=== PATIENT | female | born 1970 | race Caucasian/White ===

== ENCOUNTER 2016-03-22 10:50 | Emergency (ER) | payer BC ==
[2016-03-22 11:14] VITALS: BP 148/95
--- NOTE | 2016-03-22 11:47 | UC ---
Skin Complaint HPI - HPI Summary HPI Summary: DEVELOPED AN ABSCESS LEFT BUTTOCK 5 DAYS AGO. LANCED IT AT HOME AND EXPRESSED PUS. 2 DAYS AGO NOTICED ANOTHER PAINFUL SWELLING LEFT LABIA. PT HAS BEEN SEXUALLY ACTIVE WITH A NEW PARTNER OVER THE PAST MONTH. UNPROTECTED. IS ALSO C/ O PAIN IN PERINEAL AREA. NO URINARY SX. NO FEVER. - History of Current Complaint Chief Complaint: UCSkin Time Seen by Provider: 03/22/16 11:31 Stated Complaint: PERSONAL Hx Obtained From: Patient Hx Last Menstrual Period: 03/10/16 Onset/Duration: Sudden Onset, Lasting Days, Still Present Timing: Constant Onset Severity: Moderate Current Severity: Moderate Pain Intensity: 10 - 10/10 PAIN WITH PALPATION Pain Scale Used: 0-10 Numeric Location: Discrete - LEFT LABIA MAJORA Character: Swelling, Pain, Redness, Raised Aggravating: Touch Alleviating: Nothing Associated Signs & Symptoms: Positive: Tenderness. Negative: Nausea, Vomiting, Fever, Chills - Allergy/Home Medications Allergies/Adverse Reactions: Allergies Allergy/AdvReac Type Severity Reaction Status Date / Time Amoxicillin Allergy See Comment Verified 06/25/13 21:19 Review of Systems Constitutional: Negative Skin: Other - ERYTHEMA, SWELLING Respiratory: Negative Cardiovascular: Negative, Palpitations Genitourinary: Other - VAGINAL BURNING, SORENESS All Other Systems Reviewed And Are Negative: Yes PMH/Surg Hx/FS Hx/Imm Hx Previously Healthy: Yes - Surgical History Surgical History: None - Family History Known Family History: Positive: Diabetes Negative: Hypertension - Social History Alcohol Use: None Substance Use Type: None Smoking Status (MU): Never Smoked Tobacco Have You Smoked in the Last Year: No Physical Exam Triage Information Reviewed: Yes Appearance: Well-Appearing, Well-Nourished, Pain Distress - MILD, Obese Vital Signs: Initial Vital Signs Temp 98.4 F 03/22/16 11:07 Pulse 128 03/22/16 11:07 Resp 16 03/22/16 11:07 BP 148/95 03/22/16 11:07 Pulse Ox 95 03/22/16 11:07 Vital Signs Reviewed: Yes Eyes: Positive: Conjunctiva Clear ENT: Positive: Hearing grossly normal Neck: Positive: Supple Respiratory: Positive: No respiratory distress, No accessory muscle use Cardiovascular: Positive: Tachycardia Abdomen Description: Positive: Soft Musculoskeletal: Positive: No Edema Neurological: Positive: Alert Psychological: Positive: Age Appropriate Behavior Skin: Positive: Other - 1CM OPENING LEFT BUTTOCK WITH SURROUNDING ERYTHEMA AND INDURATION. LEFT LABIA MAJORA SWOLLEN, RED, TENDER AND INDURATED WITH CENTRAL PUNCTUM. PERINEUM RED AND INFLAMED WITH RAW SKIN. NO DISCRETE ULCERATIONS OR LESIONS. Diagnostics - Laboratory Diagnostic Studies Completed/Ordered: URINE DIP SP. GR. 1.025, 1+ LEUKS, 2-3+ GLUCOSE Course/Dx - Diagnoses Provider Diagnoses: 1. ABSCESS - LEFT LABIA, LEFT BUTTOCK. 2. VAGINITIS. 3. HIGH RISK SEXUAL ACTIVITY. 4. GLUCOSURIA Procedures - Incision and Drainage Site: LEFT LABIA MAJORA Anesthesia: Local - 1% LIDOCAINE Instrument(s): Scalpel - 11 BLADE Discharge - Discharge Plan Condition: Stable Disposition: HOME Prescriptions: Sulfamethox/Trimethoprim DS* [Bactrim DS 800/160 TAB*] 1 tab PO BID #20 tab Patient Education Materials: Vaginitis (ED), Abscess (ED) Referrals: No Primary Care Phys,NOPCP [Primary Care Provider] - Additional Instructions: YOU HAVE SUGAR IN YOUR URINE. THIS COULD BE AN INDICATOR THAT YOU HAVE DIABETES. YOU MUST GET SET UP WITH A PRIMARY CARE DOCTOR IN [place] FOR FURTHER EVALUATION. YOU WILL NEED LABS AND LIKELY MEDICATION. UNCONTROLLED DIABETES COULD EXPLAIN WHY YOU HAVE DEVELOPED THESE ABSCESSES IT CAN LOWER YOUR IMMUNE SYSTEM. SWAB SENT FOR VAGINITIS AND HERPES. BLOOD DRAWN FOR HIV AND SYPHILIS. URINE SENT FOR GONORRHEA AND CHLAMYDIA. WE WILL CALL YOU AND TREAT YOU IF INDICATED. TAKE THE ANTIBIOTIC TWICE DAILY FOR THE FULL 10 DAYS TO HELP TREAT YOUR INFECTIONS. WARM/HOT COMPRESSES/SOAKS AT LEAST 4 TIMES DAILY
[2016-03-22] MEDS ORDERED: Lidocaine 1% MPF* 2 ML VIAL ONE (12:06)
[2016-03-23 11:01] LABS: Syphilis Index < 0.1 Index
== END 2016-03-22 12:52 | disposition home or self-care (01) ==
LOC: UCEAST 10:50
DX: N76.4 Abscess of vulva (principal); N76.0 Acute vaginitis; Z72.51 High risk heterosexual behavior; R81 Glycosuria; Z11.4 Encounter for screening for human immunodeficiency virus [HIV]; Z88.0 Allergy status to penicillin
CPT/HCPCS: 36415; 81002; 86592; 86703; 87077; 87086; 87186; 87480; 87491; 87510; 87529; 87591; 87660; 99212; G0463

== ENCOUNTER 2019-02-02 10:41 | Emergency (ER) | payer SELFPAY ==
[2019-02-02] MEDS ORDERED: Ketorolac INJ* 30 MG/ML 1 ML VIAL IV PUSH ONE (11:06)
[2019-02-02] MEDS ORDERED: NS 0.9% 1000 ML** 1,000 ML IV ONE (11:06)
--- NOTE | 2019-02-02 11:10 | ED ---
HPI Chest Pain - HPI Summary HPI Summary: The pt is a 49 yr old female complaining of chest pain since this morning. She notes that the chest pain is stabbing and radiates to her upper back. She also reports burning pain in the epigastric region. Pt states she woke up with this. States, "I felt like my chest was caving in, I was trying to walk and I just got stopped." Pt reports she was coughing up blood but thought it was just her allergies. She rates her current pain severity a 10/10. No aggravating or alleviating factors noted. She also reports lots of gas, hemoptysis, SOB but denies vomiting, diarrhea. - History of Current Complaint Time Seen by Provider: 02/02/19 10:53 Hx Obtained From: Patient Hx Last Menstrual Period: 03/10/16 Onset/Duration: Started Hours Ago, Still Present Timing: Constant, Lasting Hours Initial Severity: Severe Current Severity: Severe Pain Intensity: 10 Pain Scale Used: 0-10 Numeric Chest Pain Location: Diffuse Chest Pain Radiates To:: Back Character: Sharp/Stabbing Aggravating Factor(s): Nothing Alleviating Factor(s): Nothing Associated Signs and Symptoms: Positive: Chest Pain, Shortness of Breath, Hemoptysis, Abdominal Pain, Other: - pos - "lots of gas", neg - diarrhea. Negative: Vomiting - Allergy/Home Medications Allergies/Adverse Reactions: Allergies Allergy/AdvReac Type Severity Reaction Status Date / Time MS Amoxicillin [Amoxicillin] Allergy See Comment Verified 02/02/19 12:28 Home Medications: Home Medications NK [No Home Medications Reported] 02/02/19 [History Confirmed 02/02/19] PMH/Surg Hx/FS Hx/Imm Hx Sensory History: Denies: Hx Legally Blind - e, Hx Deafness Opthamlomology History: Denies: Hx Legally Blind EENT History: Denies: Hx Deafness - Surgical History Surgical History: None Surgery Procedure, Year, and Place: none Infectious Disease History: Denies: Traveled Outside the [place] in Last 30 Days - Family History Known Family History: Positive: Diabetes Negative: Hypertension - Social History Alcohol Use: None Substance Use Type: Reports: None Smoking Status (MU): Never Smoked Tobacco Have You Smoked in the Last Year: No Review of Systems Positive: Chest Pain Positive: Shortness Of Breath Gastrointestinal: Other - pos - hemoptysis, "lots of gas" Positive: Abdominal Pain. Negative: Vomiting, Diarrhea All Other Systems Reviewed And Are Negative: Yes Physical Exam - Summary Physical Exam Summary: Constitutional: Well-developed, Well-nourished, Alert. (-) Distressed, anxious appearing Skin: Warm, Dry HENT: Normocephalic; Atraumatic Eyes: Conjunctiva normal Neck: Musculoskeletal ROM normal neck. (-) JVD, (-) Stridor, (-) Tracheal deviation Cardio: Rhythm regular, rate normal, Heart sounds normal; Intact distal pulses; Radial pulses are 2+ and symmetric. (-) Murmur Pulmonary/Chest wall: Effort normal. (-) Respiratory distress, (-) Wheezes, (-) Rales, tachypneic Abd: Soft, (-) Tenderness, (-) Distension, (-) Guarding, (-) Rebound Musculoskeletal: (-) Edema Lymph: (-) Cervical adenopathy Neuro: Alert, Oriented x3 Psych: Mood and affect Normal Triage Information Reviewed: Yes Vital Signs Reviewed: Yes Procedures - Sedation Patient Received Moderate/Deep Sedation with Procedure: No Diagnostics - Laboratory Result Diagrams: 02/02/19 11:19 02/02/19 11:19 Lab Statement: Any lab studies that have been ordered have been reviewed, and results considered in the medical decision making process. - CT Chest/Thorax CTA CT Interpretation Completed By: Radiologist Summary of CT Findings: IMPRESSION: 1. LIMITED STUDY. WITHIN THE LIMITATIONS OF THE STUDY, THERE IS NO PULMONARY ARTERIAL. FILLING DEFECT TO SUGGEST PULMONARY EMBOLISM. 2. FATTY INFILTRATION OF THE LIVER. 3. LARGE HIATAL HERNIA. ED Physician has reviewed this report. Chest Pain Course/Dx - Course Course Of Treatment: Patient is here with left upper quadrant/chest pain started scorning after she woke up. Patient was in mild distress upon arrival and was tachypneic. Patient had blood performed which showed no gross abnormality. Patient had an EKG which showed no ischemic changes. Patient had a CTA given her presentation was negative for PE. Patient does have a large hiatal hernia which she's never been told she's had before. Patient was given 1 dose of Toradol with vast improvement in her symptoms. Patient is discharged with surgery and care connections follow-up - Diagnoses Provider Diagnoses: Hiatal hernia Discharge ED - Sign-Out/Discharge Documenting (check all that apply): Patient Departure - discharge - Discharge Plan Condition: Stable Disposition: HOME Patient Education Materials: Hiatal Hernia (ED) Referrals: [facility] [Outside] - 3 Days Kale Zavaleta MD [Medical Doctor] - 3 Days Additional Instructions: Please follow up with Dr. Zavaleta within 3 days. Please return to the ED for any new or worsening symptoms. Take ibuprofen or tylenol for pain. - Billing Disposition and Condition Condition: STABLE Disposition: Home - Attestation Statements Document Initiated by Scribe: Yes Documenting Scribe: Polo Mckinley Provider For Whom Yanelyibe is Documenting (Include Credential): Jonathan Mitchell MD Scribe Attestation: Polo Iniguez, scribed for Jonathan Mitchell MD on 02/02/19 at 1420. Scribe Documentation Reviewed: Yes Provider Attestation: The documentation as recorded by the yanelyibPolo torres accurately reflects the service I personally performed and the decisions made by me, Jonathan Mitchell MD Status of Scribe Document: Viewed
[2019-02-02 11:35] LABS: Hematocrit 34 % (35-47); Hemoglobin 10.6 g/dL (12.0-16.0); Mean Corpuscular HGB Conc 31 g/dL (31-36); Mean Corpuscular Hemoglobin 20 pg (27-31); Mean Corpuscular Volume 64 fL (80-97); Mean Platelet Volume 7.5 fL (7.4-10.4); Platelet Count 408 10^3/uL (150-450); Red Blood Count 5.41 10^6 /uL (3.70-4.87); Red Cell Distribution Width 18 % (10-15); White Blood Count 9.5 10^3/uL (3.5-10.8)
[2019-02-02 11:47] LABS: Albumin 3.8 g/dL (3.2-5.2); Albumin/Globulin Ratio 0.9 (1-3); BUN/Creatinine Ratio 24.1 (8-20); Calcium 9.2 mg/dL (8.6-10.3); EGFR African American 132.6 (>60); EGFR Non-African American 109.6 (>60); Globulin 4.2 g/dL (2-4); Potassium 4.2 mmol/L (3.5-5.0); Total Bilirubin 0.3 mg/dL (0.2-1.0)
[2019-02-02 11:48] LABS: Troponin I 0.01 ng/mL (<0.03)
[2019-02-02 11:53] LABS: ABS Basophils 0.1 10^3/ul (0-0.2); ABS Lymphocytes 1.6 10^3/ul (1.0-4.8); ABS Monocytes 0.5 10^3/ul (0-0.8); ABS Neutrophils 7.3 10^3/ul (1.5-7.7); Eosinophil % 0.2 %; Lymphocyte % 17.2 %; Nucleated Red Blood Cells % 0.1
[2019-02-02] MEDS ORDERED: Iodixanol* (CONTRAST) 320 MG/ML 100 ML SDV IV ONE (12:23)
[2019-02-02 13:50] VITALS: BP 158/72
== END 2019-02-02 13:49 | disposition home or self-care (01) ==
LOC: ED 10:41
DX: K44.9 Diaphragmatic hernia without obstruction or gangrene (principal); K76.0 Fatty (change of) liver, not elsewhere classified; R06.02 Shortness of breath; R04.2 Hemoptysis; R14.3 Flatulence; Z88.0 Allergy status to penicillin
CPT/HCPCS: 36415; 71275; 80053; 83690; 84484; 85025; 93005; 96361; 96374; 99283; J1885; Q9967